=== PATIENT | female | born 1975 | race Two or more races ===

== ENCOUNTER 2025-07-25 14:46 | Emergency (ER) | payer MEDICAID, SELFPAY ==
[2025-07-25 14:47] VITALS: BMI 36.0
[2025-07-25 15:13] VITALS: BP 174/109; BP 179/114; PULSE 86; RESP 18; TEMP 36.8; O2SAT 98
--- NOTE | 2025-07-25 15:20 | EKG_ITS ---
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
--- NOTE | 2025-07-25 15:20 | XR_ITS ---
EXAMINATION: PA chest single view TECHNIQUE: Upright PA chest single view Date and time: July, 1532 hours INDICATIONS: Chest pain epigastric pain beginning 4 days ago FINDINGS: Normal heart size No pneumonia or pulmonary edema. Old right sixth rib fracture posteriorly IMPRESSION: No active disease
--- NOTE | 2025-07-25 15:20 | XR_ITS ---
Examination: Abdomen sonogram, Limited Date and time of exam: July 25, 2025, 1559 hours INDICATIONS: Epigastric pain beginning 2 weeks ago Technique: Real-time onofre scale transabdominal sonographic images of the upper abdomen obtained. Findings: Normal gallbladder Normal common bile duct Pancreatic head 3.5 cm Liver 14.5 cm fatty infiltration smooth contour no focal liver lesions Normal hepatopetal portal venous flow Patent IVC IMPRESSION: Normal gallbladder Normal common bile duct Liver normal size fatty infiltration
--- NOTE | 2025-07-25 15:22 | PD.EDCHEST ---
ED Chest Pain RME/HPI General Chief Complaint: Chest Pain Stated Complaint: CHEST PAIN, ANXIETY, HEADACHE X1W Time Seen by Provider: 07/25/25 14:59 Arrival date/time: 07/25/25 14:46 50-year-old female patient came in for evaluation regarding multiple complaints. Patient's been having epigastric pain radiating to the chest, described as burning-like sensation and associated with palpitation headache dizziness earache that comes and goes for the last 1 week. Patient is not currently taking any medication. No vomiting no fever no other complaints noted. Patient is ambulatory. Denies any trauma or fall. Related Data Previous Rx's ?Medication ?Instructions ?Recorded hydroxyzine HCl 50 mg tablet 50 mg PO TID PRN anxiety #30 tabs 07/25/25 lisinopril 10 mg tablet 10 mg PO QDAY #30 tabs 07/25/25 pantoprazole 40 mg tablet,delayed 40 mg PO QDAY #30 tabs 07/25/25 release (Protonix) Allergies Allergy/AdvReac Type Severity Reaction Status Date / Time No Known Allergies Allergy Verified 07/25/25 14:49 Review of Systems Review of Systems Narrative Review of Systems: Review of system reviewed and within normal limits except mentioned in HPI ED Exam Narrative Physical exam: VITAL SIGNS: Reviewed. GENERAL APPEARANCE: Alert and interactive, follows commands, no acute distress, HEAD AND FACE: Non-traumatic. ENT: PERRL, pink conjunctivitis, eyelid no trauma, Mucous membrane moist. NECK: Supple, nontender, no nuchal rigidity. CHEST: No tenderness, no crepitus, no paradoxical movement, no retractions. LUNGS: Clear, well ventilated, symmetric, no rales, no wheezing, no ronchi, no stridor, good breath sounds bilaterally. HEART: Regular rate, regular rhythm, no murmur, no gallops. ABDOMEN: Soft, positive bowel sounds, nondistended, no guarding, nontender, no rebound, no masses, RECTAL: Deferred. GENITAL: Deferred. NEUROLOGICAL: Gross motor function intact sensory function intact, Appropriate for age. MUSCULOSKELETAL: low back nontender, full range of motion. EXTREMITIES: Nontender, full range of motion. SKIN: Color pink, dry, no rash, no lacerations, no abrasions, no contusions. LYMPHATICS: Deferred. Course Quality Measures none Orders Category Date Time Status EKG (ED ONLY) *Do not use* NOW Care 07/25/25 15:21 Completed EKG (ED Only) Stat Exams 07/25/25 15:20 Draft US gall bladder Stat Exams 07/25/25 15:20 Completed XR chest 1V Stat Exams 07/25/25 15:20 Completed CBC Stat Lab 07/25/25 15:34 Completed Comprehensive Metabolic Panel Stat Lab 07/25/25 15:34 Completed Partial Thromboplastin Time Stat Lab 07/25/25 15:34 Completed Troponin I Stat Lab 07/25/25 15:34 Completed Urinalysis, C/S if Indicated Stat Lab 07/25/25 16:31 Completed Acetaminophen Tab [Tylenol ES Tab] Med 07/25/25 15:20 Discontinued 1,000 mg PO X1 ONE hydrOXYzine HCL [Atarax] Med 07/25/25 15:23 Discontinued 50 mg PO X1 ONE mg Hyd/Al Hyd/Krysta Susp [Maalox Susp] Med 07/25/25 15:20 Discontinued 30 ml PO X1 ONE Vital Signs Vital signs: Vital Signs Temperature 98.3 F 07/25/25 15:13 Pulse Rate 86 07/25/25 15:13 Respiratory Rate 18 07/25/25 15:13 Blood Pressure 179/114 H 07/25/25 15:13 Pulse Oximetry (%) 98 07/25/25 15:13 Oxygen Delivery Method Room Air 07/25/25 15:13 Chest Pain MDM Narrative MDM Narrative:: Patient's cardiac workup today all came back normal EKG showed sinus rhythm, ventricular rate of 80 bpm, no ST segment ovation depression noted. Ultrasound of the gallbladder came back unremarkable patient blood pressure was noted to be 169/101 prior to discharge. I will send her home on lisinopril, Protonix and hydroxyzine for anxiety also. She is stable for discharge home I told her to follow-up closely with PCP. Patient's chest x-ray showed No active disease Patient data External records reviewed:: None Clinical information provided by:: patient and family Social determinants that could affect healthcare access:: none Patient has the following chronic illnesses:: None How is presenting disease/condition affected by chronic disease/condition?: no chronic disease Evaluation data The following diagnostics were reviewed and interpreted by me:: lab results, radiology exam(s) and EKG tracing(s) Lab and/or radiology exams considered but not ordered:: None Interpretation Summary: See results and MDM Medications / Prescriptions Medications or Prescriptions considered but not ordered:: None Medication administrations:: Medication Administration History Discontinued Medications Acetaminophen (Acetaminophen 500 Mg Tablet) 1,000 mg PO X1 ONE Stop: 07/25/25 15:21 Last Admin: 07/25/25 15:48 Dose: 1,000 mg Documented By: BD Al Hydrox/Mg Hydrox/Simethicone (Mg Hyd/Al Hyd/Krysta (Maalox Reg) Susp 30 Ml Udc) 30 ml PO X1 ONE Stop: 07/25/25 15:21 Last Admin: 07/25/25 15:49 Dose: 30 ml Documented By: BD Hydroxyzine HCl (Hydroxyzine Hcl 25 Mg Tablet) 50 mg PO X1 ONE Stop: 07/25/25 15:24 Last Admin: 07/25/25 15:48 Dose: 50 mg Documented By: BD Hydroxyzine, Maalox and Tylenol Consultations Consultation(s) initiated? (list below): No Diagnosis Chest Pain Differential Diagnosis: pneumothorax, costochondritis and chest pain Most likely diagnosis given after review of the tests above:: Hypertension epigastric pain , anxiety Admission Indicated Admission indicated?: not indicated Admission Request Was there a request for admission?: No Disposition Plan Disposition Plan: Discharge Discharge Attestation Discharge Attestation: The patient and all family members were given an opportunity to ask questions and understood the discharge instructions. Discharge instructions specifically effects, indications for sooner follow up or return to the emergency department, and the expected course of current diagnosis. Patient condition: Stable Discharge Plan Plan Patient Disposition: HOME (Self Care) Discharge Disposition comment: stable Prescriptions/Referrals Prescriptions/Med Rec: New lisinopril 10 mg tablet 10 mg PO QDAY Qty: 30 0RF hydroxyzine HCl 50 mg tablet 50 mg PO TID PRN (Reason: anxiety) Qty: 30 0RF pantoprazole [Protonix] 40 mg tablet,delayed release (DR/EC) 40 mg PO QDAY Qty: 30 0RF Referrals: No Primary/Family,Physician [Primary Care Provider] - In 1 week Problem List Clinical Impression: Anxiety, Hypertension Patient/Caregiver Discharge Instructions Discharge Activity: activity as tolerated Education Materials: ED Anxiety Reaction Additional Instructions: Thank you for the opportunity for serving you today. You are stable for discharged . You are advised to: Follow-up with your PCP in 1 to 2 days Return to ED for worsening of symptoms Increase oral fluids Take medication as prescribed Print Language: Czech Stand Alone Forms: Mirella Award Info., Patient Portal Info Letter ALTAF/MARY Supervising Physician ALTAF/MARY Supervising Physician: MD Khanh
[2025-07-25] MEDS: ACETAMINOPHEN 500 MG TABLET 1000 MG PO (15:48)
[2025-07-25] MEDS: MG HYD/AL HYD/SIME (Maalox Reg) SUSP 30 ML UDC PO (15:49)
[2025-07-25 15:52] LABS: Basophils # (Auto) 0.1 Thou/mm3 (0.0-0.2); Basophils % (Auto) 1 % (0-2.5); Eosinophils # (Auto) 0.1 Thou/mm3 (0.0-0.5); Eosinophils % (Auto) 1 % (0-10); Hematocrit 43.8 % (36.0-46.0); Hemoglobin 14.3 g/dL (12.0-16.0); Immature Granulocytes Auto 0.04 Thou/mm3 (0.00-0.00); Lymphocytes # (Auto) 1.7 Thou/mm3 (1.0-4.8); Lymphocytes % (Auto) 14 % (10-50); Mean Corpuscular HGB Conc 32.6 g/dl (31.0-37.0); Mean Corpuscular Hemoglobin 27.2 pg (25.0-35.0); Mean Corpuscular Volume 83 fL (80-100); Monocytes # (Auto) 0.6 Thou/mm3 (0.0-0.8); Monocytes % (Auto) 5 % (0-12); Neutrophils # (Auto) 9.5 Thou/mm3 (1.8-7.7); Neutrophils % (Auto) 79 % (37-80); Nucleated Red Blood Cell # 0.00 Thou/mm3 (0.00-0.00); Nucleated Red Blood Cell % 0 /100 WBC (0); Platelet Count 295 Thou/mm3 (140-440); RDW Standard Deviation 49.1 fL (36.4-46.3); Red Blood Count 5.26 Miln/mm3 (4.00-5.20); White Blood Count 12.0 Thou/mm3 (3.6-11.0)
[2025-07-25 15:59] LABS: Partial Thromboplastin Time 24.6 Seconds (22.0-36.0)
[2025-07-25 16:00] LABS: Alanine Aminotransferase 71 U/L (10-49); Albumin, Serum 4.8 gm/dL (3.5-5.0); Albumin/Globulin Ratio 1.6 (1.2-2.2); Alkaline Phosphatase 71 U/L (46-116); Anion Gap 10 (7-16); Aspartate Amino Transferase 48 U/L (0-34); BUN/Creatinine Ratio 16 Ratio (12-20); Bilirubin,Total 0.3 mg/dL (0.3-1.2); Blood Urea Nitrogen 16 mg/dL (9-23); Calcium 9.6 mg/dL (8.3-10.6); Calcium (Corrected) 9.6 mg/dL (8.5-10.1); Carbon Dioxide 25.5 mMol/L (20.0-31.0); Chloride 105 mMol/L (98-107); Creatinine (Component) 1.0 mg/dL (0.6-1.3); Estimated Creatinine Clearance 70.7 mL/min (>60); Globulin 3.0 gm/dL (2.3-3.5); Glucose 142 mg/dL (74-106); Osmolality,Calculated 282 (275-295); Potassium 5.0 mMol/L (3.4-5.1); Sodium 140 mMol/L (136-145); Total Protein 7.8 gm/dL (5.7-8.2); Troponin I < 0.002 ng/mL (0.0-0.045); eGFR > 60 See Note
[2025-07-25 16:50] LABS: Collection Type, Urine Clean Catch
[2025-07-25 17:18] LABS: Bilirubin,Urine Negative (Negative); Blood,Urine Negative (Negative); Calcium Oxalate Crystals,Urine 1+; Clarity,Urine Clear (Clear/Hazy); Color,Urine Yellow (Lt Yel-Yel); Culture Indicated,Urine Not Indicated; Glucose, Urine Negative (Negative); Ketones,Urine Negative (Negative); Leukocyte Esterase,Urine Negative (Negative); Nitrite,Urine Negative (Negative); PH,Urine 6.0 (5.0-7.0); Protein,Urine Trace (Neg - Trace); RBC,Urine 1 /hpf (0-3); Specific Gravity,Urine 1.029 (1.001-1.035); Squamous Epithelial Cell,Urine 1 /hpf (0-5); Urobilinogen,Urine Negative mg/dL (0.0-1.0); WBC,Urine < 1 /hpf (0-5)
[2025-07-25 17:50] VITALS: BP 169/101; PULSE 82; RESP 19; TEMP 36.7; O2SAT 98
== END 2025-07-25 18:19 | disposition home or self-care (01) ==
PROVIDERS: Nurse Practitioner Family; Emergency Provider Family Medicine
DX: F41.9 Anxiety disorder, unspecified (principal); I10 Essential (primary) hypertension; R10.13 Epigastric pain
CPT/HCPCS: 36415; 71045; 76705; 80053; 81001; 84484; 85025; 85730; 93005; 99283; A9270